=== PATIENT | male | born 1935 | race Caucasian/White ===

== ENCOUNTER → 2016-08-17 | Outpatient (CLI) | payer MEDICARE, BC | END | disposition home or self-care (01) | LOC: PCVCIMAG 10:18 | PROVIDERS: ATTEND Internal Medicine Cardiovascular Disease | DX: I65.23 Occlusion and stenosis of bilateral carotid arteries (principal); I70.203 Unspecified atherosclerosis of native arteries of extremities, bilateral legs; M79.604 Pain in right leg; M79.605 Pain in left leg; E78.00 Pure hypercholesterolemia, unspecified; G47.34 Idiopathic sleep related nonobstructive alveolar hypoventilation; I10 Essential (primary) hypertension; J44.9 Chronic obstructive pulmonary disease, unspecified; I25.10 Atherosclerotic heart disease of native coronary artery without angina pectoris; I48.0 Paroxysmal atrial fibrillation | CPT/HCPCS: 80061; 93005; 93880; 93925; 93970; G0463 ==

== ENCOUNTER → 2016-10-18 | Outpatient (CLI) | payer MEDICARE, BC | END | disposition home or self-care (01) | LOC: PCVCIMAG 13:23 | PROVIDERS: ATTEND Internal Medicine Cardiovascular Disease | DX: I08.1 Rheumatic disorders of both mitral and tricuspid valves (principal); I10 Essential (primary) hypertension; I48.91 Unspecified atrial fibrillation; E78.00 Pure hypercholesterolemia, unspecified | CPT/HCPCS: 93306; G0463 ==

== ENCOUNTER → 2017-03-22 | Outpatient (CLI) | payer MEDICARE, BC | END | disposition home or self-care (01) | LOC: PCVCCLINIC 13:13 | PROVIDERS: ATTEND Internal Medicine Cardiovascular Disease | DX: I48.0 Paroxysmal atrial fibrillation (principal); I25.10 Atherosclerotic heart disease of native coronary artery without angina pectoris; I10 Essential (primary) hypertension; E78.00 Pure hypercholesterolemia, unspecified; I73.9 Peripheral vascular disease, unspecified; I44.0 Atrioventricular block, first degree; I49.3 Ventricular premature depolarization; I65.29 Occlusion and stenosis of unspecified carotid artery; F32.9 Major depressive disorder, single episode, unspecified; J44.9 Chronic obstructive pulmonary disease, unspecified; Z87.891 Personal history of nicotine dependence; Z90.49 Acquired absence of other specified parts of digestive tract; Z79.82 Long term (current) use of aspirin; Z79.899 Other long term (current) drug therapy; Z88.8 Allergy status to other drugs, medicaments and biological substances | CPT/HCPCS: 80061; 93005; G0463 ==

== ENCOUNTER → 2017-10-25 | Outpatient (CLI) | payer MEDICARE, BC | END | disposition home or self-care (01) | LOC: PCVCIMAG 10:25 | DX: I25.10 Atherosclerotic heart disease of native coronary artery without angina pectoris (principal); I73.9 Peripheral vascular disease, unspecified; E78.00 Pure hypercholesterolemia, unspecified; I48.91 Unspecified atrial fibrillation; I65.23 Occlusion and stenosis of bilateral carotid arteries; R60.9 Edema, unspecified; I10 Essential (primary) hypertension; R00.2 Palpitations; J44.9 Chronic obstructive pulmonary disease, unspecified; Z87.891 Personal history of nicotine dependence; Z88.8 Allergy status to other drugs, medicaments and biological substances; Z79.82 Long term (current) use of aspirin; Z79.899 Other long term (current) drug therapy | CPT/HCPCS: 78452; 93005; 93017; A9500; G0463 ==